=== PATIENT | male | born 1985 | race African-American/Black ===

== ENCOUNTER 2022-12-08 19:18 | Inpatient (IN) | payer BC ==
[~2022-12-08] VITALS: Ht 170.2 cm; Wt 78.0 kg
[2022-12-08] MEDS ORDERED: ASPIRIN 81MG TABLET PO ONE (19:30)
[2022-12-08 19:57] LABS: BASOPHILS % 0.4 % (0.0-2.0); HEMATOCRIT. 47.1 % (42.0-52.0); HEMOGLOBIN. 16.4 g/dL (14.0-18.0); LYMPHOCYTES % 53.3 % (20.0-50.0); MEAN PLATELET VOLUME 7.9 fl (7.4-10.4); MONOCYTES % 7.1 % (2.0-8.0); NEUTROPHILS % 38.2 % (40.0-76.0); PLATELET 224 x1000/uL (130-400); RED BLOOD CELL COUNT 5.67 mill/uL (4.7-6.1); RED CELL DISTRIBUTION WIDTH 13.5 % (11.6-14.6)
[2022-12-08 20:04] LABS: INR 1.1; PARTIAL THROMBOPLASTIN TIME 24.8 sec (23.4-31.0); PROTHROMBIN TIME 11.6 sec (9.6-11.0)
[2022-12-08 20:06] LABS: CHLORIDE 100 mEq/L (98-107)
[2022-12-08] MEDS: NITROGLYCERIN 0.4MG TABLET SL SL PRN ×2 (20:08→21:12)
[2022-12-08] MEDS ORDERED: POTASSIUM CHLORIDE 20MEQ TABLET SR PO ONE (21:00)
[2022-12-09] MEDS ORDERED: CLONIDINE 0.1MG TABLET PO PRN (01:15)
[2022-12-09] MEDS ORDERED: DEXTROSE 50% WATER 50ML SYRINGE IV PRN (01:15)
[2022-12-09] MEDS ORDERED: ONDANSETRON HCL 4MG/2ML INJ IV PRN (01:15)
[2022-12-09] MEDS ORDERED: MAGNESIUM/ALUMINUM HYDROXIDE/SIMETHICONE 30ML UDC PO PRN (01:15)
[2022-12-09] MEDS ORDERED: ACETAMINOPHEN 325MG TABLET PO PRN ×2 (01:15)
[2022-12-09] MEDS: SODIUM CHLORIDE 0.9% INJ 3ML FLUSH IVF SCH ×2 (06:35→14:13)
[2022-12-09] MEDS: INSULIN LISPRO 100 UNITS/ML SUBCUT SCH ×2 (08:05→12:00)
[2022-12-09] MEDS: BLOOD SUGAR DIAGNOSTIC STRIP TEST SCH ×2 (09:03→11:30)
[2022-12-09] MEDS ORDERED: LISINOPRIL 20MG TABLET PO NR (13:30)
[2022-12-09 15:20] VITALS: BP 155/96
== END 2022-12-09 16:06 | disposition home or self-care (01) | DRG 203 ==
LOC: ER 19:18 → MICUSO 23:10 → EDBEDREQ 23:32 → EDBEDREQTM 23:32 → 7WST 12-09 14:58
PROVIDERS: ADMIT Internal Medicine; ATTEND Internal Medicine
DX: R07.89 Other chest pain (principal); E11.9 Type 2 diabetes mellitus without complications; E87.6 Hypokalemia; F41.9 Anxiety disorder, unspecified; I10 Essential (primary) hypertension; Z82.49 Family history of ischemic heart disease and other diseases of the circulatory system; Z79.899 Other long term (current) drug therapy; Z83.3 Family history of diabetes mellitus
CPT/HCPCS: 36415; 71045; 80053; 82962; 83036; 83880; 84484; 85025; 86850; 86900; 93005; 99285